=== PATIENT | female | born 1965 | race Caucasian/White ===

== ENCOUNTER 2018-05-27 07:11 | Day surgery (SDC) | payer MEDICAID ==
[~2018-05-27] VITALS: Ht 154.9 cm; Wt 122.7 kg
--- NOTE | ~2018-05-27 | OP ---
PATIENT NAME: JUAN ROBERTO MEDICAL RECORD: [id number] :63 LOCATION:[facility] ADMISSION DATE: SURGEON: ELISHA MARCUS DO DATE OF OPERATION: 05/27/2018 PROCEDURE: Colonoscopy with biopsies and polypectomy. INDICATIONS FOR PROCEDURE: Hematochezia and diarrhea. SCOPE: Wattbot video pediatric colonoscope. MEDICATIONS: Propofol 950 mg IV per anesthesia. WITHDRAWAL TIME: 41 minutes. ESTIMATED BLOOD LOSS: Minimal. COMPLICATIONS: None. FINDINGS AND DESCRIPTION OF PROCEDURE: Informed consent was given. The patient was made comfortable with the above medication. After reaching an adequate level of sedation by slow IV push, the patient was placed on her left side. A digital rectal examination was performed and was normal. The endoscope was then advanced under direct visualization through the rectum to the cecum, confirmed by the presence of the appendiceal orifice and ileocecal valve. There were multiple polyps visualized on today's examination. Four were located in the cecum. These were benign-appearing and mixed type polyps of sessile and flat polyps. They ranged in size from 4 to 1 cm in size. Two of these polyps were removed using endoscopic mucosal resection technique with a saline pillow and snare polypectomy. These 2 polyps, both required a single endoclip at each site for tissue positioning. The other 2 polyps in the cecum were removed using a hot snare. In the ascending colon, there were 5 separate polyps. They were mixed type as well, a flat and sessile polyps and ranged in size from 3 mm to 9 mm in diameter. One was removed using endoscopic mucosal resection technique with a saline pillow and a snare polypectomy. This required an endoclip for tissue positioning after removal of the polyp. The other 4 polyps in the ascending colon were removed using a hot snare. In the transverse colon, there were two separate polyps, which ranged in size from 3 to 4 mm in diameter. They were benign appearing and sessile and were removed using hot forceps. In the descending colon, there was a single polyp, which measured approximately 5 mm in diameter, which was benign appearing and sessile. It was removed using a hot snare. Retroflexion was performed in the rectum with visualization of grade I internal hemorrhoids without bleeding. Also, during the study, random biopsies were taken to submit for histopathology and to rule out microscopic colitis. Stool was collected to send for an xTAG study to rule out any infectious reason for loose stools. The endoscope was withdrawn from the patient. The patient tolerated the procedure well and there were no immediate complications. IMPRESSION: 1. Multiple polyps as described above, removed using a combination of endoscopic mucosal resection technique, hot snare, and hot forceps. 2. Grade I internal hemorrhoids without bleeding. 3. Stool collected to send off for infectious studies and random biopsies taken with cold forceps to rule out microscopic colitis. OPERATIVE REPORT [id number] JUAN ROBERTO PLAN AND RECOMMENDATIONS: 1. Discharge home when recovery parameters are met. 2. Follow up biopsy specimen results. 3. High fiber diet. 4. Continue current medications. 5. We will provide a prescription to have available of dicyclomine 20 mg to be taken up to 2 times daily as needed for loose stools or abdominal pain or cramping. 6. Recall colonoscopy within 1 year due to today's prep, which was not ideal and the multiple polyps removed on today's examination. TRANSINT:[id number] Voice Confirmation ID: [id number] DOCUMENT ID: [id number] ELISHA MARCUS DO at 0732 CC: [id number] DICTATION DATE: 05/27/18 0952 [employer] LOCATOR: 05/27/18 1130 [facility] 05/27/18 [facility] [address] [place] [address]
[2018-05-27 07:29] LABS: HEMATOCRIT 42.5 % (36.0-48.0); HEMOGLOBIN 14.9 g/dL (12-16); MCH 32.8 pg (26.0-34.0); MCHC 35.1 g/dL (31.0-37.0); MCV 93.6 fL (80.0-100.0); MEAN PLATELET VOLUME 11.6 fL (7.4-10.4); RBC 4.54 10x6/uL (4.00-5.40); RDW 13.8 % (11.5-14.5); WBC 10.2 10x3/uL (4.8-10.8)
[2018-05-27 07:36] LABS: CALC OSMOLALITY 282 mosm/kg (275-300); CALCIUM 8.5 mg/dL (8.5-10.1); CARBON DIOXIDE 26.2 mmol/L (21.0-32.0); CHLORIDE - SERUM 103 mmol/L (98-107); CREATININE - SERUM 0.8 mg/dL (0.6-1.3); GLUCOSE 162 mg/dL (74-106); POTASSIUM - SERUM 3.9 mmol/L (3.5-5.1); SODIUM 141 mmol/L (136-145); UREA NITROGEN 7 mg/dL (7-18); eGFR NON AFRICAN AMERICAN 79 mL/min (90-120)
[2018-05-27] MEDS ORDERED: VICTOZA0.6 MG/0.1 SQ (07:43)
[2018-05-27] MEDS ORDERED: SYNTHROID88 MCG PO (07:44)
[2018-05-27] MEDS ORDERED: ALBUTEROL SULF8.5 GM INH (07:45)
[2018-05-27] MEDS ORDERED: ADVAIR HFA [SP]12 GM INH (07:47)
[2018-05-27] MEDS ORDERED: ALTACE1.25 MG PO (07:47)
[2018-05-27] MEDS ORDERED: SPIRIVA18 MCG INH (07:47)
[2018-05-27] MEDS ORDERED: BAYER CHEWABLE81 MG (07:49)
[2018-05-27 08:03] VITALS: BP 128/74; Ht 154.9 cm; Wt 122.7 kg
== END 2018-05-27 10:26 | disposition home or self-care (01) ==
LOC: D.OPS 07:11
PROVIDERS: Anesthesiology
DX: K92.1 Melena (principal); R19.7 Diarrhea, unspecified; D12.2 Benign neoplasm of ascending colon; D12.0 Benign neoplasm of cecum; D12.4 Benign neoplasm of descending colon; D12.3 Benign neoplasm of transverse colon; Z01.812 Encounter for preprocedural laboratory examination